=== PATIENT | male | born 1990 | race American Indian/Alaskan Native ===

== ENCOUNTER 2016-06-20 15:46 | Emergency (ER) | payer SELFPAY ==
[2016-06-20] MEDS ORDERED: NORCO 5/325 PO ONE (16:18)
[2016-06-20] MEDS ORDERED: THERMAZENE 50 GRAM TP ONE (16:18)
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
[2016-06-20] MEDS ORDERED: BOOSTRIX IM ONE (16:20)
[2016-06-20 17:12] VITALS: BP 143/82
== END 2016-06-20 17:28 | disposition home or self-care (01) ==
LOC: ED 15:46
DX: T65.91XA Toxic effect of unspecified substance, accidental (unintentional), initial encounter (principal); Y92.89 Other specified places as the place of occurrence of the external cause
CPT/HCPCS: 90471; 90715

== ENCOUNTER 2016-06-23 13:03 | Emergency (ER) | payer SELFPAY ==
[2016-06-23 13:45] VITALS: BP 128/89
== END 2016-06-23 16:10 | disposition left against medical advice (07) ==
LOC: ED 13:03
DX: Z76.0 Encounter for issue of repeat prescription (principal); Z53.21 Procedure and treatment not carried out due to patient leaving prior to being seen by health care provider

== ENCOUNTER 2016-06-25 13:23 | Emergency (ER) | payer SELFPAY ==
[2016-06-25 13:34] VITALS: BP 127/91
[2016-06-25] MEDS ORDERED: NORCO 5/325 PO ONE (15:04)
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
== END 2016-06-25 15:29 | disposition home or self-care (01) ==
LOC: ED 13:23
DX: T20.20XA Burn of second degree of head, face, and neck, unspecified site, initial encounter (principal); X19.XXXA Contact with other heat and hot substances, initial encounter; Y93.9 Activity, unspecified; Y92.9 Unspecified place or not applicable; Y99.9 Unspecified external cause status
CPT/HCPCS: 99282

== ENCOUNTER 2016-07-03 08:59 | Emergency (ER) | payer SELFPAY ==
[2016-07-03 09:45] VITALS: BP 111/81
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
== END 2016-07-03 10:55 | disposition home or self-care (01) ==
LOC: ED 08:59
DX: R51 Headache (principal)
CPT/HCPCS: 99282

== ENCOUNTER 2016-07-13 18:16 | Emergency (ER) | payer OTHER ==
[2016-07-13 19:00] VITALS: BP 119/85
[2016-07-13] MEDS ORDERED: TORADOL IM ONE (20:06)
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
== END 2016-07-13 20:55 | disposition home or self-care (01) ==
LOC: ED 18:16
DX: Z76.0 Encounter for issue of repeat prescription (principal); R51 Headache
CPT/HCPCS: 96372; 99282; J1885

== ENCOUNTER 2017-03-09 17:33 | Emergency (ER) | payer SELFPAY ==
[2017-03-09 17:45] VITALS: BP 120/77
--- NOTE | 2017-03-09 17:59 | Emergency Department Report ---
Chief Complaint: Back Pain/Injury Stated Complaint: BACK PAIN - HPI History of Present Illness: 27-year-old male past medical history chronic back pain presents with acute on chronic lower back pain. Patient states he was moving heavy furniture in 1-2 boxes may have fallen on his lower back 48 hours ago. Patient states he had one episode of vomiting earlier today. Patient is awake alert and oriented 3 denies lower extremity paresthesias or saddle paresthesias is ambulatory without assistance. States he took Advil at home with minimal relief of his pain. Pain currently 6 out of 10 persistent dull and achy. denies dysruia or hematuria - ROS Review of Systems: 2 days of lower back pain - Exam Vital Signs: Vital Signs 03/09/17 17:41 Temperature 98.4 F Pulse Rate 94 H Respiratory 18 Rate Blood Pressure 120/77 O2 Sat by Pulse 98 Oximetry Physical Exam: Lower back pain on deep palpation of the L-spine and paraspinal region MSE screening note: Focused history and physical exam performed. Due to findings the following was ordered: Screening Assessment/Plan/Differential Dx:lower back pain 1- This initial assessment/diagnostic orders/clinical plan/ treatment(s) is/are subject to change based on pt's health status, clinical progression and re- assessment by fellow clinical providers in the ED. Further treatment and workup at subsequent clinical provers discretion. Patient/guardians urged not to elope from ED as their condition may be serious if not clinically assessed and managed. 2-urinalysis, BMP, CK, CBC 3-[facility] ED Disposition for MSE Condition: Stable
[2017-03-09 18:22] LABS: Bilirubin,Urine NEG (Negative); Blood,Urine NEG (Negative); Ketones,Urine 80 mg/dL (Negative); Leukocyte Esterase,Urine NEG (Negative); Mucus,Urine 3+ /HPF; Nitrite,Urine NEG (Negative)
[2017-03-09 18:28] LABS: Basophils % (Auto) 0.7 % (0.0-1.8); Eosinophils % (Auto) 0.3 % (0.0-4.3); Hematocrit 43.2 % (35.5-45.6); Hemoglobin 14.4 gm/dl (11.8-15.2); Mean Corpuscular HGB Conc 33 % (32-34); Mean Corpuscular Hemoglobin 28 pg (28-32); Mean Corpuscular Volume 83 fl (84-94); Platelet Count 135 K/mm3 (140-440); Red Blood Count 5.18 M/mm3 (3.65-5.03); Red Cell Distribution Width 13.5 % (13.2-15.2); White Blood Count 7.3 K/mm3 (4.5-11.0)
[2017-03-09] MEDS ORDERED: TYLENOL PO ONE (19:28)
[2017-03-09 19:31] LABS: Alanine Aminotransferase 117 units/L (7-56); Albumin 4.9 g/dL (3.9-5); Albumin/Globulin Ratio 1.6 %; Alkaline Phosphatase 61 units/L (35-129); Anion Gap 22 mmol/L; BUN/Creatinine Ratio 30; Blood Urea Nitrogen 18 mg/dL (9-20); Calcium 9.7 mg/dL (8.4-10.2); Carbon Dioxide 23 mmol/L (22-30); Chloride 97.7 mmol/L (98-107); Glucose 87 mg/dL (75-100); Lipase 16 units/L (13-60); Potassium 4.2 mmol/L (3.6-5.0); Sodium 138 mmol/L (137-145)
== END 2017-03-09 19:43 | disposition left against medical advice (07) ==
LOC: ED 17:33
DX: M54.5 Low back pain (principal); G89.29 Other chronic pain; R11.11 Vomiting without nausea
CPT/HCPCS: 36415; 80053; 81001; 82550; 83690; 85025; 99283

== ENCOUNTER 2017-03-25 15:39 | Emergency (ER) | payer SELFPAY ==
[2017-03-25 16:40] VITALS: BP 110/68
== END 2017-03-25 22:53 | disposition left against medical advice (07) ==
LOC: ED 15:39
DX: M54.5 Low back pain (principal); Z53.21 Procedure and treatment not carried out due to patient leaving prior to being seen by health care provider